=== PATIENT | male | born 1950 | race Two or more races ===

== ENCOUNTER 2021-09-04 05:30 | Day surgery (SDC) | payer OTHER ==
[~2021-09-04 05:30] MED LIST: ATACAND32 MG PO; CRESTOR20 MG PO; LEVOTHYROXINE25 MCG PO; NORVASC5 MG PO; TOPROL XL25 M1 PO; [UNRECOGNIZED DRUG - OTHER] PO
[2021-09-04] MEDS ORDERED: TADALAFIL5 MG PO (09:04)
[2021-09-04] MEDS ORDERED: MELOXICAM7.5 MG PO (09:04)
== END 2021-09-04 13:50 | disposition home or self-care (01) ==
LOC: CIR.AMB 05:30
PROVIDERS: ATTEND Surgery
DX: N40.1 Benign prostatic hyperplasia with lower urinary tract symptoms (principal)

== ENCOUNTER 2022-01-08 08:00 | Outpatient (CLI) | payer OTHER ==
[~2022-01-08 08:00] MED LIST changes: +MELOXICAM7.5 MG PO; +TADALAFIL5 MG PO
== END 2022-01-08 08:30 | disposition home or self-care (01) ==
LOC: PPH VACUNA 08:00
PROVIDERS: ATTEND Emergency Medicine Pediatric Emergency Medicine
DX: Z23 Encounter for immunization (principal)

== ENCOUNTER 2022-06-17 15:56 | Outpatient (CLI) | payer OTHER | END 2022-06-17 16:06 | disposition home or self-care (01) | LOC: PPH VACUNA 15:56 | PROVIDERS: ATTEND Emergency Medicine Pediatric Emergency Medicine | DX: Z23 Encounter for immunization (principal) ==

== ENCOUNTER 2024-04-09 13:09 | Emergency (ER) | payer OTHER ==
[~2024-04-09] VITALS: Ht 167.6 cm; Wt 87.5 kg
[2024-04-09] MEDS ORDERED: NEXIUM40 M1 PO (13:43)
== END 2024-04-09 17:38 | disposition home or self-care (01) ==
LOC: ER 13:10
DX: U07.1 COVID-19 (principal); R53.81 Other malaise; I10 Essential (primary) hypertension